=== PATIENT | male | born 1995 | race Caucasian/White ===

== ENCOUNTER 2023-10-26 13:01 | Emergency (ER) | payer OTHER, SELFPAY ==
[2023-10-26 13:13] VITALS: BP 145/82; PULSE 88; RESP 18; TEMP 37.1; O2SAT 98
--- NOTE | 2023-10-26 13:56 | ED.SKABFB ---
HPI - Skin/Abscess/Foreign Bdy General Chief complaint: Urogenital-Male Stated complaint: Skin Problem Time Seen by Provider: 10/26/23 13:50 Source: patient, RN notes reviewed and old records reviewed Mode of arrival: ambulatory Limitations: no limitations History of Present Illness HPI narrative: 28 year old male artient presents to express care with significant other with complaints of Initial break out of herpetic lesions noted in groin and on shaft of penis for 3dyas. Patient reports some discomfort in right groin area described as burnig and soreness reports some thin clear discharge, Patient denies any testicular pain. Patient has had known exposure to genital herpes. Patient also has complaints of some upper respiratory congestion and right ear pain for one week duration. MD complaint: other (Herpes lesions sinus congestion right ear muffled) Onset (ago): day(s) (3) Location: genitals Severity: moderate Severity scale (1-10): 5 Treatments prior to arrival: other (Tylenol) Related Data Allergies Allergy/AdvReac Type Severity Reaction Status Date / Time No Known Allergies Allergy Verified 10/26/23 13:22 Review of Systems Review of Systems: CONSTITUTIONAL: Denies fever, chills, or sweats. EYES: Denies visual changes, redness, or discharge. ENT: Reports rhinorrhea, congestion,no sore throat, reports right ear muffled hearing. CARDIOVASCULAR: Denies chest pain, palpitations, or edema. RESPIRATORY: Denies cough or dyspnea. GASTROINTESTINAL: Denies abdominal pain, nausea, vomiting, or diarrhea. GENITOURINARY: Denies dysuria or hematuria. SKIN: genital lesions in groin and on shaft of penis burning with soreness MUSCULOSKELETAL: Denies back pain, joint pain, or myalgia. NEUROLOGIC: Denies headache, numbness, or weakness. PSYCHIATRIC: Denies anxiety or depression. All systems reviewed & are unremarkable except as noted in HPI and below PMFSH Social History Social History (Updated 10/28/23 @ 10:31 by Roselia Robison NP) Smoking status: Never smoker Alcohol intake: current Alcohol use details: social Substance use type: does not use Gender identity (if verbalized by the patient): Male Comments At time of signature, agree with nursing past medical, surgical, social and family history. There is no relevant family history pertinent to the presenting complaint Exam Narrative: GENERAL: Well-appearing, well-nourished, and in no acute distress. HEAD: Normocephalic, atraumatic. EYES: PERRLA and EOMI. ENT: Nares clear, clear rhinorrhea no epistaxis. Mucous membranes moist.Right TM red, Left Tm normal with good light reflex, throat pink with no lesions or swelling NECK: Supple.no lymphadenopathy CHEST: Clear to auscultation. No respiratory distress.SAO2 98% on room air HEART: Regular rate and rhythm. No murmur heard. Normal peripheral pulses. ABDOMEN: Soft, nontender, nondistended, normal active bowel sounds. EXTREMITIES: Normal range of motion. No edema. SKIN: Warm, dry,pustular blisters noted to perineal area and to shaft of penis with burning soreness sensation, initial break out, some right groin soreness, states no concern for exposure to other STD's,thin clear penile discharge.Denies any testicular discomfort NEURO: No focal thin . Alert and oriented x3. Course Course Emergency Course: Patient is aware of diagnosis, understands and agrees to treatment plan.? Anticipatory guidance given.? Patient agrees to follow-up as directed and is aware of reasons to seek care at the emergency department. Portions of this record may have been created with voice recognition software Level of Care: Express Care Visit Vital Signs Vital signs: Vital Signs Temperature 37.1 C 10/26/23 13:13 Pulse Rate 88 10/26/23 13:13 Respiratory Rate 18 10/26/23 13:13 Blood Pressure 145/82 H 10/26/23 13:13 Pulse Oximetry 98 10/26/23 13:13 Oxygen Delivery Room Air 10/26/23 13:13 Temperature 37.1 C 10/26/23
== END 2023-10-26 14:08 | disposition home or self-care (01) ==
PROVIDERS: Emergency Provider Registered Nurse
DX: A60.01 Herpesviral infection of penis (principal); H66.91 Otitis media, unspecified, right ear
CPT/HCPCS: 99213; G0463